=== PATIENT | male | born 1970 | race Caucasian/White ===

== ENCOUNTER 2023-11-04 20:54 | Emergency (ER) | payer BC ==
[2023-11-04 21:31] VITALS: RESP 16
[2023-11-04] MEDS ORDERED: Zofran 4 MG/2 ML VIAL ONE (21:40)
[2023-11-04] MEDS ORDERED: BABY ASPIRIN 81 MG CHEW ONE (21:41)
[2023-11-04] MEDS ORDERED: MORPHINE SULFATE 2 MG INJ ONE (21:41)
[2023-11-04] MEDS: MORPHINE SULFATE 2 MG INJ IV ONE (21:44)
[2023-11-04] MEDS: Zofran 4 MG/2 ML VIAL IV ONE (21:44)
[2023-11-04] MEDS: BABY ASPIRIN 81 MG CHEW PO ONE (21:44)
[2023-11-04 21:53] LABS: Absolute Neutrophil Ct (ANC) 5.76 x10^3/uL (1.78-5.38); BASOPHIL % 0.8 % (0.2-1.2); Basophil (Absolute #) 0.07 x10^3/uL (0.01-0.08); Eosinophil % 2.4 % (0.8-7.0); Eosinophil (Absolute #) 0.22 x10^3/uL (0.04-0.54); Hematocrit 38.7 % (40.1-51.0); Hemoglobin 13.4 g/dL (13.7-17.5); IMMATURE GRAN # 0.02 x10^3u/L (0.001-0.031); IMMATURE GRAN % 0.2 % (0.001-0.429); Lymphocyte (Absolute #) 2.64 x10^3/uL (1.32-3.57); Lymphocytes % 28.6 % (21.8-53.1); Mean Cell Volume 89.4 fL (79.0-92.2); Mean Corpuscular Hemoglobin 30.9 pg (25.7-32.2); Mean Corpuscular Hgb Concent. 34.6 g/dL (32.3-36.5); Mean Platelet Volume 8.9 fL (9.4-12.4); Monocyte (Absolute #) 0.53 x10^3/uL (0.30-0.82); Monocytes % 5.7 % (5.3-12.2); Neutrophil % 62.3 % (34.0-67.9); Platelet Count 248 x10^3/uL (163-337); Red Blood Count 4.33 x10^6/uL (4.63-6.08); Red Cell Distribution Width 12.9 % (11.6-14.4); White Blood Count 9.2 x10^3/uL (4.23-9.07)
[2023-11-04 22:27] LABS: ALBUMIN 3.9 g/dL (3.5-5.0); BILIRUBIN,TOTAL 0.5 mg/dL (0.2-1.3); Creatinine 1 0.83 mg/dL (0.66-1.25); EST GLOMERULAR FILTRATION RATE 105.3 ML/MIN; Potassium 3.6 mmol/L (3.5-5.1); Total Protein 6.5 g/dL (6.3-8.2)
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
[2023-11-05 01:41] VITALS: BP 116/78; PULSE 54; O2SAT 98
--- NOTE | 2023-11-05 09:05 | XRAY ---
Indication: Chest pain. Comparison: None Portable apical lordotic chest hyperinflated and clear with a few incidental tiny calcified granulomas. Heart not enlarged. Bony thorax intact.
== END 2023-11-05 01:56 | disposition home or self-care (01) ==
LOC: ED 20:54
DX: R07.9 Chest pain, unspecified (principal); I10 Essential (primary) hypertension; E78.5 Hyperlipidemia, unspecified; Z79.02 Long term (current) use of antithrombotics/antiplatelets; Z79.899 Other long term (current) drug therapy; Z72.0 Tobacco use
CPT/HCPCS: 36000; 36415; 71045; 80053; 83880; 84484; 85025; 85379; 93005; 96374; 96375; 99284; J2270; J2405; A9270-GY

== ENCOUNTER 2023-11-06 00:54 | Emergency (ER) | payer BC ==
[2023-11-06 01:15] VITALS: RESP 18; TEMP 98.7
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
[2023-11-06 01:55] VITALS: BP 134/74; PULSE 78; O2SAT 98
--- NOTE | 2023-11-06 08:55 | XRAY ---
Indication: Pain following injury. Comparison: None 3 nonweightbearing views left foot demonstrates mild 1st IP joint degenerative changes. No other bony, articular, or soft tissue abnormalities.
== END 2023-11-06 01:55 | disposition home or self-care (01) ==
LOC: ED 00:54
DX: S90.32XA Contusion of left foot, initial encounter (principal); W20.8XXA Other cause of strike by thrown, projected or falling object, initial encounter; E78.5 Hyperlipidemia, unspecified; I10 Essential (primary) hypertension; E11.9 Type 2 diabetes mellitus without complications; Z79.02 Long term (current) use of antithrombotics/antiplatelets; Z79.84 Long term (current) use of oral hypoglycemic drugs; Z79.899 Other long term (current) drug therapy; Z72.0 Tobacco use
CPT/HCPCS: 73630; 99282

== ENCOUNTER 2023-12-03 09:22 | Observation (INO) | payer BC, OTHER ==
--- NOTE | 2023-12-03 09:46 | ERPHSYRPT ---
- History of Present Illness Time Seen by Provider: 12/03/23 09:41 Historian: patient Exam Limitations: no limitations Physician History: 53-year-old male presents to our ED for evaluation of chest pain. Patient has a history of diabetes hypertension former smoker. Patient had a heart attack approximately 2 months ago per patient. He had 2 cardiac stents placed. Mesha leyva is from [place] and recently moved here to [place]. Patient has been experiencing some intermittent chest pain since his arrival to [place]. Patient's primary care doctor ordered a stress test. Patient was undergoing a stress test when he developed chest pain. Per report patient became unr esponsive briefly. Patient was brought to our ED for further evaluation. Patient has some substernal chest discomfort. No diaphoresis. No nausea no vomiting. Shortness of breath with activity. No active shortness of breath at rest. Patient at this point is conversant well-appearing and in no acute distress. He voices no other complaints or concerns at this time. Portions of this note were created with voice recognition technology. There may be grammatical, spelling, punctuation or sound alike errors Timing/Duration: today Activities at Onset: activity Quality: aching Location: substernal Chest Pain Radiation: no radiation Severity of Pain-Max: moderate Severity of Pain-Current: moderate Modifying Factors: Improves With: nothing Associated Symptoms: shortness of breath Prior Chest Pain/Cardiac Workup: cardiac cath, heart attack Nitro Today/Relief: no nitro taken today Aspirin Treatment Today: no aspirin today Allergies/Adverse Reactions: No Known Drug Allergies Allergy (Verified 12/03/23 09:30) Home Medications: Aspirin EC 81 mg [Ecotrin 81 mg] 81 mg PO DAILY 11/04/23 [History] Atorvastatin Calcium 40 mg PO DAILY 11/04/23 [History] Lisinopril 20 mg [Zestril 20 MG] 20 mg PO DAILY 11/04/23 [History] Metoprolol Tartrate 25 mg [Lopressor 25MG Tab] 25 mg PO BID 11/04/23 [History] Prasugrel HCL 10 MG [Prasugrel] 10 mg PO DAILY 11/04/23 [History] Empagliflozin [Jardiance] 25 mg PO DAILY 11/06/23 [History] Hx Tetanus, Diphtheria Vaccination/Date Given: Yes Hx Influenza Vaccination/Date Given: No Hx Pneumococcal Vaccination/Date Given: No Travel Risk - Emerging Infectious Disease Are you exhibiting symptoms associated with any current EIDs: No - Review of Systems Constitutional: No Symptoms, No Fever, No Chills Eyes: No Symptoms Ears, Nose, & Throat: No Symptoms Respiratory: No Symptoms, No Cough, No Dyspnea Cardiac: No Symptoms, No Chest Pain, No Edema, No Syncope Abdominal/Gastrointestinal: No Symptoms, No Abdominal Pain, No Nausea, No Vomiting, No Diarrhea Genitourinary Symptoms: No Symptoms, No Dysuria Musculoskeletal: No Symptoms, No Back Pain, No Neck Pain Skin: No Symptoms, No Rash Neurological: No Symptoms, No Dizziness, No Focal Weakness, No Sensory Changes Psychological: No Symptoms Endocrine: No Symptoms Hematologic/Lymphatic: No Symptoms Immunological/Allergic: No Symptoms All Other Systems: Reviewed and Negative - Past Medical History Pertinent Past Medical History: Yes Neurological History: Stroke ENT History: No Pertinent History Cardiac History: High Cholesterol, Hypertension, Myocardial Infarction ([place]) Respiratory History: No Pertinent History Endocrine Medical History: Diabetes Type II Musculoskeletal History: No Pertinent History GI Medical History: No Pertinent History History: No Pertinent History Psycho-Social History: No Pertinent History Male Reproductive Disorders: No Pertinent History Other Medical History: rib fractures x3. 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 to remove" - Social History Smoking Status: Current some day smoker Exposure to second hand smoke: No Drug Use: none - Social Determinants of Health Will the patient participate in the screening: Declined to provide Do you worry about a steady place to live?: No In the past 12 months,have you had to go without utilities?: No Transportation Issues: No Has anyone in your support network made you feel unsafe?: No Have you or anyone in your house had to go without enough: No - Nursing Vital Signs Nursing Vital Signs: Initial Vital Signs Temperature 98.0 F 12/03/23 09:30 Pulse Rate 62 12/03/23 09:30 Respiratory Rate 20 12/03/23 09:30 Blood Pressure 168/96 12/03/23 09:30 O2 Sat by Pulse Oximetry 98 12/03/23 09:30 Pain Scale Pain Intensity 4 - Physical Exam General Appearance: no apparent distress, alert Eye Exam: PERRL/EOMI, eyes nml inspection Ears, Nose, Throat Exam: normal ENT inspection, moist mucous membranes Neck Exam: normal inspection, non-tender, supple, full range of motion Respiratory Exam: normal breath sounds, lungs clear, No respiratory distress Cardiovascular Exam: regular rate/rhythm, normal heart sounds Gastrointestinal/Abdomen Exam: soft, No tenderness, No mass Back Exam: normal inspection, No CVA tenderness, No vertebral tenderness Extremity Exam: normal inspection, normal range of motion Neurologic Exam: alert, oriented x 3, cooperative, normal mood/affect, sensation nml, No motor deficits Skin Exam: normal color, warm, dry SpO2 Interpretation: normal SpO2: 98 O2 Delivery: Room Air - Course Nursing assessment & vital signs reviewed: Yes EKG Interpreted by Me: RATE (68), Sinus Rhythm, Left [place] Deviation, NORMAL INTERVALS, NORMAL QRS - Radiology Exams Chest X-ray Interpretation: Teleradiologist Report (No acute findings) Ordered Tests: Active Orders 24 hr Category Date Time Status Anthropology Faculty Member STAT Care 12/03/23 09:39 Active EKG-ER Only STAT Care 12/03/23 09:38 Active IV Insertion STAT Care 12/03/23 09:38 Active Pulse Oximetry (ED) STAT Care 12/03/23 09:38 Active CHEST 1 VIEW (PORTABLE) Stat Exams 12/03/23 09:41 Completed CBC W DIFF Stat Lab 12/03/23 09:35 Completed CMP Stat Lab 12/03/23 09:35 Completed ETHYL ALCOHOL Stat Lab 12/03/23 09:35 Completed NT PRO BNPII Stat Lab 12/03/23 09:35 Completed POCT GLUCOSE Stat Lab 12/03/23 09:32 Completed TROPONIN Q4H Lab 12/03/23 09:35 Completed TROPONIN Q4H Lab 12/03/23 12:10 Completed TROPONIN Q4H Lab 12/03/23 17:45 Ordered UA W/RFX UR CULTURE Stat Lab 12/03/23 12:05 Completed Urine Triage Profile Stat Lab 12/03/23 12:05 Completed Cardiolite Stress Test-RT ONCE RT 12/03/23 09:42 Completed Transfer Order Routine Transfer 12/03/23 Ordered Medication Summary Discontinued Medications Generic Name Dose Route Start Last Admin Trade Name Lance PRN Reason Stop Dose Admin Aspirin 324 mg 12/03/23 09:47 12/03/23 09:58 Aspirin 81 Mg Tab.Chew PO 12/03/23 09:48 324 mg STAT ONE Administration Aspirin Confirm 12/03/23 09:57 Aspirin 81 Mg Tab.Chew Administered 12/03/23 09:58 Dose 324 mg .ROUTE .STK-MED ONE Nitroglycerin 1 gm 12/03/23 09:48 12/03/23 09:58 Nitroglycerin 1 Gm Packet TOP 12/03/23 09:49 1 gm STAT ONE Administration Nitroglycerin Confirm 12/03/23 09:57 Nitroglycerin 1 Gm Packet Administered 12/03/23 09:58 Dose 1 gm .ROUTE .STK-MED ONE Lab/Rad Data: Laboratory Result Diagrams 12/03/23 09:35 12/03/23 09:35 Laboratory Results 12/03/23 12/03/23 12/03/23 Range/Units 12:10 12:05 12:05 WBC (4.23-9.07) x10^3/uL RBC (4.63-6.08) x10^6/uL Hgb (13.7-17.5) g/dL Hct (40.1-51.0) % MCV (79.0-92.2) fL MCH (25.7-32.2) pg MCHC (32.3-36.5) g/dL RDW (11.6-14.4) % Plt Count (163-337) x10^3/uL MPV (9.4-12.4) fL Gran % (34.0-67.9) % Immature Gran % (Auto) (0.001-0.429) % Nucleat RBC Rel Count (0.00-0.2) % Eos # (Auto) (0.04-0.54) x10^3/uL Immature Gran # (Auto) (0.001-0.031) x10^3u/L Absolute Lymphs (auto) (1.32-3.57) x10^3/uL Absolute Monos (auto) (0.30-0.82) x10^3/uL Absolute Nucleated RBC (0.00-0.012) x10^3u/L Lymphocytes % (21.8-53.1) % Monocytes % (5.3-12.2) % Eosinophils % (0.8-7.0) % Basophils % (0.2-1.2) % Absolute Granulocytes (1.78-5.38) x10^3/uL Basophils # (0.01-0.08) x10^3/uL Sodium (135-145) mmol/L Potassium (3.5-5.1) mmol/L Chloride (98-107) mmol/L Carbon Dioxide (22-30) mmol/L Anion Gap (5-15) MEQ/L BUN (9-20) mg/dL Creatinine (0.66-1.25) mg/dL Estimated GFR ML/MIN Glucose (74-106) mg/dL POC Glucometer (74 to 106) mg/dL Calcium (8.4-10.2) mg/dL Total Bilirubin (0.2-1.3) mg/dL AST (17-59) U/L ALT (0-50) U/L Alkaline Phosphatase (38-126) U/L Troponin I < 0.012 (0.000-0.033) ng/mL NT-Pro-B Natriuret Pep (<300) pg/mL Serum Total Protein (6.3-8.2) g/dL Albumin (3.5-5.0) g/dL Urine Color Yellow (Yellow) Urine Appearance Clear (Clear) Urine pH 5.5 (4.6-8.0) Ur Specific [place] 1.025 (1.005-1.030) Urine Protein Negative (Negative) Urine Glucose (UA) >=1000 A (Negative) mg/dL Urine Ketones Negative (Negative) Urine Blood Negative (Negative) Urine Nitrite Negative (Negative) Urine Bilirubin Negative (Negative) Urine Urobilinogen 0.2 (0.2) mg/dL Ur Leukocyte Esterase Negative (Negative) U Hyaline Cast (Auto) NONE SEEN (0-2) /LPF Urine Microscopic RBC 0-2 (0-5) /HPF Urine Microscopic WBC 0-2 (0-5) /HPF Ur Epithelial Cells None Seen (None Seen) /HPF Urine Bacteria None Seen (None Seen) /HPF Urine Culture Reflexed NO (NO) Urine Opiates Level NEGATIVE (NEGATIVE) Ur Methadone NEGATIVE (NEGATIVE) Urine Barbiturates NEGATIVE (NEGATIVE) Ur Phencyclidine (PCP) NEGATIVE (NEGATIVE) Urine Amphetamine NEGATIVE (NEGATIVE) U Benzodiazepine Level NEGATIVE (NEGATIVE) Urine Cocaine NEGATIVE (NEGATIVE) Urine Marijuana (THC) POSITIVE A (NEGATIVE) Ethyl Alcohol (0-10) mg/dL 12/03/23 12/03/23 12/03/23 Range/Units 09:35 09:35 09:35 WBC 9.6 H (4.23-9.07) x10^3/uL RBC 5.01 (4.63-6.08) x10^6/uL Hgb 15.4 (13.7-17.5) g/dL Hct 44.5 (40.1-51.0) % MCV 88.8 (79.0-92.2) fL MCH 30.7 (25.7-32.2) pg MCHC 34.6 (32.3-36.5) g/dL RDW 12.6 (11.6-14.4) % Plt Count 223 (163-337) x10^3/uL MPV 8.7 L (9.4-12.4) fL Gran % 72.3 H (34.0-67.9) % Immature Gran % (Auto) 0.2 (0.001-0.429) % Nucleat RBC Rel Count 0.0 (0.00-0.2) % Eos # (Auto) 0.17 (0.04-0.54) x10^3/uL Immature Gran # (Auto) 0.02 (0.001-0.031) x10^3u/L Absolute Lymphs (auto) 1.93 (1.32-3.57) x10^3/uL Absolute Monos (auto) 0.47 (0.30-0.82) x10^3/uL Absolute Nucleated RBC 0.00 (0.00-0.012) x10^3u/L Lymphocytes % 20.1 L (21.8-53.1) % Monocytes % 4.9 L (5.3-12.2) % Eosinophils % 1.8 (0.8-7.0) % Basophils % 0.7 (0.2-1.2) % Absolute Granulocytes 6.92 H (1.78-5.38) x10^3/uL Basophils # 0.07 (0.01-0.08) x10^3/uL Sodium 137 (135-145) mmol/L Potassium 3.9 (3.5-5.1) mmol/L Chloride 104 (98-107) mmol/L Carbon Dioxide 23 (22-30) mmol/L Anion Gap 13.5 (5-15) MEQ/L BUN 18 (9-20) mg/dL Creatinine 0.75 (0.66-1.25) mg/dL Estimated GFR 108.6 ML/MIN Glucose 145 H (74-106) mg/dL POC Glucometer (74 to 106) mg/dL Calcium 9.3 (8.4-10.2) mg/dL Total Bilirubin 0.60 (0.2-1.3) mg/dL AST 36 (17-59) U/L ALT 54 H (0-50) U/L Alkaline Phosphatase 65 (38-126) U/L Troponin I < 0.012 (0.000-0.033) ng/mL NT-Pro-B Natriuret Pep 197 (<300) pg/mL Serum Total Protein 7.1 (6.3-8.2) g/dL Albumin 4.3 (3.5-5.0) g/dL Urine Color (Yellow) Urine Appearance (Clear) Urine pH (4.6-8.0) Ur Specific [place] (1.005-1.030) Urine Protein (Negative) Urine Glucose (UA) (Negative) mg/dL Urine Ketones (Negative) Urine Blood (Negative) Urine Nitrite (Negative) Urine Bilirubin (Negative) Urine Urobilinogen (0.2) mg/dL Ur Leukocyte Esterase (Negative) U Hyaline Cast (Auto) (0-2) /LPF Urine Microscopic RBC (0-5) /HPF Urine Microscopic WBC (0-5) /HPF Ur Epithelial Cells (None Seen) /HPF Urine Bacteria (None Seen) /HPF Urine Culture Reflexed (NO) Urine Opiates Level (NEGATIVE) Ur Methadone (NEGATIVE) Urine Barbiturates (NEGATIVE) Ur Phencyclidine (PCP) (NEGATIVE) Urine Amphetamine (NEGATIVE) U Benzodiazepine Level (NEGATIVE) Urine Cocaine (NEGATIVE) Urine Marijuana (THC) (NEGATIVE) Ethyl Alcohol < 10 (0-10) mg/dL 12/03/23 Range/Units 09:32 WBC (4.23-9.07) x10^3/uL RBC (4.63-6.08) x10^6/uL Hgb (13.7-17.5) g/dL Hct (40.1-51.0) % MCV (79.0-92.2) fL MCH (25.7-32.2) pg MCHC (32.3-36.5) g/dL RDW (11.6-14.4) % Plt Count (163-337) x10^3/uL MPV (9.4-12.4) fL Gran % (34.0-67.9) % Immature Gran % (Auto) (0.001-0.429) % Nucleat RBC Rel Count (0.00-0.2) % Eos # (Auto) (0.04-0.54) x10^3/uL Immature Gran # (Auto) (0.001-0.031) x10^3u/L Absolute Lymphs (auto) (1.32-3.57) x10^3/uL Absolute Monos (auto) (0.30-0.82) x10^3/uL Absolute Nucleated RBC (0.00-0.012) x10^3u/L Lymphocytes % (21.8-53.1) % Monocytes % (5.3-12.2) % Eosinophils % (0.8-7.0) % Basophils % (0.2-1.2) % Absolute Granulocytes (1.78-5.38) x10^3/uL Basophils # (0.01-0.08) x10^3/uL Sodium (135-145) mmol/L Potassium (3.5-5.1) mmol/L Chloride (98-107) mmol/L Carbon Dioxide (22-30) mmol/L Anion Gap (5-15) MEQ/L BUN (9-20) mg/dL Creatinine (0.66-1.25) mg/dL Estimated GFR ML/MIN Glucose (74-106) mg/dL POC Glucometer 128 H (74 to 106) mg/dL Calcium (8.4-10.2) mg/dL Total Bilirubin (0.2-1.3) mg/dL AST (17-59) U/L ALT (0-50) U/L Alkaline Phosphatase (38-126) U/L Troponin I (0.000-0.033) ng/mL NT-Pro-B Natriuret Pep (<300) pg/mL Serum Total Protein (6.3-8.2) g/dL Albumin (3.5-5.0) g/dL Urine Color (Yellow) Urine Appearance (Clear) Urine pH (4.6-8.0) Ur Specific [place] (1.005-1.030) Urine Protein (Negative) Urine Glucose (UA) (Negative) mg/dL Urine Ketones (Negative) Urine Blood (Negative) Urine Nitrite (Negative) Urine Bilirubin (Negative) Urine Urobilinogen (0.2) mg/dL Ur Leukocyte Esterase (Negative) U Hyaline Cast (Auto) (0-2) /LPF Urine Microscopic RBC (0-5) /HPF Urine Microscopic WBC (0-5) /HPF Ur Epithelial Cells (None Seen) /HPF Urine Bacteria (None Seen) /HPF Urine Culture Reflexed (NO) Urine Opiates Level (NEGATIVE) Ur Methadone (NEGATIVE) Urine Barbiturates (NEGATIVE) Ur Phencyclidine (PCP) (NEGATIVE) Urine Amphetamine (NEGATIVE) U Benzodiazepine Level (NEGATIVE) Urine Cocaine (NEGATIVE) Urine Marijuana (THC) (NEGATIVE) Ethyl Alcohol (0-10) mg/dL - Progress Progress: improved Air Movement: good Progress Note: Patient reassessed. No active chest pain. Aspirin and nitroglycerin paste applied. 2 troponin negative. CBC CMP essentially nonremarkable. Chest x-ray shows no acute pathology. In light of patient's complaints and history patient will be admitted for cardiac rule out. Patient accepted by hospitalist Dr. Godfrey at 12:58 PM. Plan of care discussed with patient. Patient agrees to admission [facility] acute hospital for further evaluation and treatment. Portions of this note were created with voice recognition technology. There may be grammatical, spelling, punctuation or sound alike errors Complexity of problem addressed is moderate acute complicated. No critical care time. Complex of data reviewed and analyzed is extensive. Test ordered test reviewed results analyzed and correlated clinically with history and physical exam. Risk of complication and or risk of morbidity/mortality patient management is high. Patient requires hospitalization for further evaluation and treatment. Vital stable time spent to admit patient approximately 20 minutes. Plan of care established for shared decision making. No social determinants of health present impede follow-up. Portions of this note were created with voice recognition technology. There may be grammatical, spelling, punctuation or sound alike errors 12/03/23 13:00 Blood Culture(s) Obtained: No Antibiotics given: No Counseled pt/family regarding: lab results, diagnosis, rad results - Departure Departure Disposition: Observation Clinical Impression: Chest pain, ACS (acute coronary syndrome) Condition: Stable Critical Care Time: No Referrals: PAMELA ROMO MD [Primary Care Provider] - Follow up/PCP as directed
[2023-12-03 09:54] LABS: Absolute Neutrophil Ct (ANC) 6.92 x10^3/uL (1.78-5.38); BASOPHIL % 0.7 % (0.2-1.2); Basophil (Absolute #) 0.07 x10^3/uL (0.01-0.08); Eosinophil % 1.8 % (0.8-7.0); Eosinophil (Absolute #) 0.17 x10^3/uL (0.04-0.54); Hematocrit 44.5 % (40.1-51.0); Hemoglobin 15.4 g/dL (13.7-17.5); IMMATURE GRAN # 0.02 x10^3u/L (0.001-0.031); IMMATURE GRAN % 0.2 % (0.001-0.429); Lymphocyte (Absolute #) 1.93 x10^3/uL (1.32-3.57); Lymphocytes % 20.1 % (21.8-53.1); Mean Cell Volume 88.8 fL (79.0-92.2); Mean Corpuscular Hemoglobin 30.7 pg (25.7-32.2); Mean Corpuscular Hgb Concent. 34.6 g/dL (32.3-36.5); Mean Platelet Volume 8.7 fL (9.4-12.4); Monocyte (Absolute #) 0.47 x10^3/uL (0.30-0.82); Monocytes % 4.9 % (5.3-12.2); Neutrophil % 72.3 % (34.0-67.9); Platelet Count 223 x10^3/uL (163-337); Red Blood Count 5.01 x10^6/uL (4.63-6.08); Red Cell Distribution Width 12.6 % (11.6-14.4); White Blood Count 9.6 x10^3/uL (4.23-9.07)
[2023-12-03] MEDS ORDERED: BABY ASPIRIN 81 MG CHEW ONE (09:57)
[2023-12-03] MEDS ORDERED: NITRO-BID 2% UD PACKETS ONE (09:57)
[2023-12-03] MEDS: BABY ASPIRIN 81 MG CHEW PO ONE (09:58)
[2023-12-03] MEDS: NITRO-BID 2% UD PACKETS TOP ONE (09:58)
[2023-12-03 10:17] LABS: ALBUMIN 4.3 g/dL (3.5-5.0); ALKALINE PHOSPHATASE 65 U/L (38-126); ANION GAP 13.5 MEQ/L (5-15); BLOOD UREA NITROGEN 18 mg/dL (9-20); CHLORIDE 104 mmol/L (98-107); Calcium 9.3 mg/dL (8.4-10.2); Carbon Dioxide 23 mmol/L (22-30); Creatinine 1 0.75 mg/dL (0.66-1.25); EST GLOMERULAR FILTRATION RATE 108.6 ML/MIN; ETHYL ALCOHOL < 10 mg/dL (0-10); Glucose 145 mg/dL (74-106); NT PRO BNPII 197 pg/mL (<300); Potassium 3.9 mmol/L (3.5-5.1); SGOT/AST 36 U/L (17-59); SGPT/ALT 54 U/L (0-50); SODIUM 137 mmol/L (135-145); Total Protein 7.1 g/dL (6.3-8.2)
--- NOTE | 2023-12-03 10:17 | XRAY ---
Indication: Chest pain. Comparison: November 04, 2023 Portable chest remains hyperinflated and clear. Heart not enlarged. Bony thorax intact. No new/acute findings.
[2023-12-03 12:15] LABS: Appearance Clear (Clear); Bacteria None Seen /HPF (None Seen); Bilirubin Negative (Negative); Blood Negative (Negative); Epithelial Cells None Seen /HPF (None Seen); Glucose, Urine >=1000 mg/dL (Negative); Hyaline Casts NONE SEEN /LPF (0-2); Ketones Negative (Negative); Leukocyte Esterase Negative (Negative); Nitrite Negative (Negative); Ph 5.5 (4.6-8.0); Protein,Urine Dip Negative (Negative); RBC 0-2 /HPF (0-5); Specific Gravity 1.025 (1.005-1.030); Urobilinogen 0.2 mg/dL (0.2); WBC 0-2 /HPF (0-5)
[2023-12-03 12:18] LABS: ADD URINE CULTURE? NO (NO)
[2023-12-03 12:33] LABS: Amphetamine,Urine NEGATIVE (NEGATIVE); Barbiturate,Urine NEGATIVE (NEGATIVE); Benzodiazepine,Urine NEGATIVE (NEGATIVE); Cocaine,Urine NEGATIVE (NEGATIVE); Methadone,Urine NEGATIVE (NEGATIVE); Opiate,Urine NEGATIVE (NEGATIVE); PCP,Urine NEGATIVE (NEGATIVE); THC,Urine POSITIVE (NEGATIVE)
--- NOTE | 2023-12-03 13:18 | PCM.HP ---
History of Present Illness - Chief Complaint Chief Complaint: CP Date: 12/03/23 History of Present Illness: is a 53 year old male with PMHX of stroke, hyperlipidemia, HTN, [place], type II DM, daily smoker- stopped 2 days ago, and occasional marijuana use. He presented to our ED today for evaluation of chest pain. Patient had a heart attack approximately 2 months he reports. He has had 2 cardiac stents placed. Patient is from [place] and recently moved here to [place]. 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 Patient has been experiencing some intermittent chest pain since his arrival to [place]. Patient's primary care doctor ordered a stress test. Patient was undergoing the stress test when he developed chest pain. Per report patient became unresponsive briefly. Patient was brought to our ED for further evaluation. Patient has some substernal chest discomfort that is sharp and w/o radiation. Trop x2 negative, will continue to trend. No diaphoresis, nausea or vomiting. + Shortness of breath with activity. No active shortness of breath at rest. Patient at this point is conversing, well-appearing, and in no acute distress. He voices no other complaints or concerns at this time. He is tearful. - Review of Systems Constitutional: No Fever, No Chills Eyes: No Symptoms Ears, Nose, & Throat: No Symptoms Respiratory: No Cough, No Short Of Breath Cardiac: Chest Pain, No Edema, No Syncope Abdominal/Gastrointestinal: No Abdominal Pain, No Nausea, No Vomiting, No Diarrhea Genitourinary Symptoms: No Dysuria Musculoskeletal: No Back Pain, No Neck Pain Skin: No Rash Neurological: No Dizziness, No Focal Weakness, No Sensory Changes Psychological: No Symptoms Endocrine: No Symptoms Hematologic/Lymphatic: No Symptoms Immunological/Allergic: No Symptoms Medications & Allergies Home Medications: Home Medication List Aspirin EC 81 mg [Ecotrin 81 mg] 81 mg PO DAILY 11/04/23 [History Confirmed 12/03/23] Atorvastatin Calcium 40 mg PO DAILY 11/04/23 [History Confirmed 12/03/23] Lisinopril 20 mg [Zestril 20 MG] 20 mg PO DAILY 11/04/23 [History Confirmed 12/03/23] Metoprolol Tartrate 25 mg [Lopressor 25MG Tab] 25 mg PO BID 11/04/23 [History Confirmed 12/03/23] Prasugrel HCL 10 MG [Prasugrel] 10 mg PO DAILY 11/04/23 [History Confirmed 12/03/23] Empagliflozin [Jardiance] 25 mg PO DAILY 11/06/23 [History Confirmed 12/03/23] Allergies/Adverse Reactions: Allergies Allergy/AdvReac Type Severity Reaction Status Date / Time No Known Drug Allergies Allergy Verified 12/03/23 09:30 - Past Medical History Past Medical History: Yes Neurological History: Stroke ENT History: No Pertinent History Cardiac History: High Cholesterol, Hypertension, Myocardial Infarction ([place]) Respiratory History: No Pertinent History Endocrine Medical History: Diabetes Type II Musculoskelatal History: No Pertinent History GI Medical History: No Pertinent History History: No Pertinent History Pyscho-Social History: No Pertinent History Male Reproductive Disorders: No Pertinent History Comment: rib fractures x3. 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 they had to remove" - Social History Smoking Status: Current some day smoker Exposure to second hand smoke: No Alcohol: None Drug Use: none - Social Determinants of Health Will the patient participate in the screening: Declined to provide Do you worry about a steady place to live?: No Do you have any problems with any of the following?: No known problems In the past 12 months,have you had to go without utilities?: No Have you or anyone in your house had to go without enough: No Transportation Issues: No Has anyone in your support network made you feel unsafe?: No - Physical Exam Vital Signs: Vital Signs - 24 hr Temp Pulse Resp BP BP Pulse Ox 12/03/23 13:02 98 12/03/23 12:45 67 17 191/84 95 12/03/23 12:30 66 18 164/99 95 12/03/23 12:15 63 18 161/91 12/03/23 12:00 60 17 146/89 97 12/03/23 11:45 57 L 17 161/97 96 12/03/23 11:30 59 L 16 158/97 95 12/03/23 11:15 66 19 165/95 96 12/03/23 11:00 59 L 19 170/96 96 12/03/23 10:45 71 21 154/107 96 12/03/23 10:30 67 14 159/96 98 12/03/23 10:15 67 19 146/91 97 12/03/23 10:00 71 18 159/102 96 12/03/23 09:58 98 12/03/23 09:55 78 22 175/95 95 12/03/23 09:30 98.0 F 66 15 168/96 180/104 96 General Appearance: no apparent distress, alert Neurologic Exam: alert, oriented x 3, cooperative, normal mood/affect, nml cerebellar function, nml station & gait, sensation nml, No motor deficits Eye Exam: PERRL/EOMI, eyes nml inspection Ears, Nose, Throat Exam: normal ENT inspection, TMs normal, pharynx normal, moist mucous membranes Neck Exam: normal inspection, non-tender, supple, full range of motion Respiratory Exam: normal breath sounds, lungs clear, No respiratory distress Cardiovascular Exam: regular rate/rhythm, normal heart sounds, normal peripheral pulses Gastrointestinal/Abdomen Exam: soft, normal bowel sounds, No tenderness, No mass Back Exam: normal inspection, normal range of motion, No CVA tenderness, No vertebral tenderness Extremity Exam: normal inspection, normal range of motion, pelvis stable Skin Exam: normal color, warm, dry, No rash Lymphatic Exam: No adenopathy Results - Labs Lab/Micro Results: Lab Results-Last 24 Hours 12/03/23 12/03/23 12/03/23 Range/Units 09:32 09:35 09:35 WBC 9.6 H (4.23-9.07) x10^3/uL RBC 5.01 (4.63-6.08) x10^6/uL Hgb 15.4 (13.7-17.5) g/dL Hct 44.5 (40.1-51.0) % MCV 88.8 (79.0-92.2) fL MCH 30.7 (25.7-32.2) pg MCHC 34.6 (32.3-36.5) g/dL RDW 12.6 (11.6-14.4) % Plt Count 223 (163-337) x10^3/uL MPV 8.7 L (9.4-12.4) fL Gran % 72.3 H (34.0-67.9) % Immature Gran % (Auto) 0.2 (0.001-0.429) % Nucleat RBC Rel Count 0.0 (0.00-0.2) % Eos # (Auto) 0.17 (0.04-0.54) x10^3/uL Immature Gran # (Auto) 0.02 (0.001-0.031) x10^3u/L Absolute Lymphs (auto) 1.93 (1.32-3.57) x10^3/uL Absolute Monos (auto) 0.47 (0.30-0.82) x10^3/uL Absolute Nucleated RBC 0.00 (0.00-0.012) x10^3u/L Lymphocytes % 20.1 L (21.8-53.1) % Monocytes % 4.9 L (5.3-12.2) % Eosinophils % 1.8 (0.8-7.0) % Basophils % 0.7 (0.2-1.2) % Absolute Granulocytes 6.92 H (1.78-5.38) x10^3/uL Basophils # 0.07 (0.01-0.08) x10^3/uL Sodium 137 (135-145) mmol/L Potassium 3.9 (3.5-5.1) mmol/L Chloride 104 (98-107) mmol/L Carbon Dioxide 23 (22-30) mmol/L Anion Gap 13.5 (5-15) MEQ/L BUN 18 (9-20) mg/dL Creatinine 0.75 (0.66-1.25) mg/dL Estimated GFR 108.6 ML/MIN Glucose 145 H (74-106) mg/dL POC Glucometer 128 H (74 to 106) mg/dL Calcium 9.3 (8.4-10.2) mg/dL Total Bilirubin 0.60 (0.2-1.3) mg/dL AST 36 (17-59) U/L ALT 54 H (0-50) U/L Alkaline Phosphatase 65 (38-126) U/L Troponin I (0.000-0.033) ng/mL NT-Pro-B Natriuret Pep 197 (<300) pg/mL Serum Total Protein 7.1 (6.3-8.2) g/dL Albumin 4.3 (3.5-5.0) g/dL Urine Color (Yellow) Urine Appearance (Clear) Urine pH (4.6-8.0) Ur Specific Newman (1.005-1.030) Urine Protein (Negative) Urine Glucose (UA) (Negative) mg/dL Urine Ketones (Negative) Urine Blood (Negative) Urine Nitrite (Negative) Urine Bilirubin (Negative) Urine Urobilinogen (0.2) mg/dL Ur Leukocyte Esterase (Negative) U Hyaline Cast (Auto) (0-2) /LPF Urine Microscopic RBC (0-5) /HPF Urine Microscopic WBC (0-5) /HPF Ur Epithelial Cells (None Seen) /HPF Urine Bacteria (None Seen) /HPF Urine Culture Reflexed (NO) Urine Opiates Level (NEGATIVE) Ur Methadone (NEGATIVE) Urine Barbiturates (NEGATIVE) Ur Phencyclidine (PCP) (NEGATIVE) Urine Amphetamine (NEGATIVE) U Benzodiazepine Level (NEGATIVE) Urine Cocaine (NEGATIVE) Urine Marijuana (THC) (NEGATIVE) Ethyl Alcohol < 10 (0-10) mg/dL 12/03/23 12/03/23 12/03/23 Range/Units 09:35 12:05 12:05 WBC (4.23-9.07) x10^3/uL RBC (4.63-6.08) x10^6/uL Hgb (13.7-17.5) g/dL Hct (40.1-51.0) % MCV (79.0-92.2) fL MCH (25.7-32.2) pg MCHC (32.3-36.5) g/dL RDW (11.6-14.4) % Plt Count (163-337) x10^3/uL MPV (9.4-12.4) fL Gran % (34.0-67.9) % Immature Gran % (Auto) (0.001-0.429) % Nucleat RBC Rel Count (0.00-0.2) % Eos # (Auto) (0.04-0.54) x10^3/uL Immature Gran # (Auto) (0.001-0.031) x10^3u/L Absolute Lymphs (auto) (1.32-3.57) x10^3/uL Absolute Monos (auto) (0.30-0.82) x10^3/uL Absolute Nucleated RBC (0.00-0.012) x10^3u/L Lymphocytes % (21.8-53.1) % Monocytes % (5.3-12.2) % Eosinophils % (0.8-7.0) % Basophils % (0.2-1.2) % Absolute Granulocytes (1.78-5.38) x10^3/uL Basophils # (0.01-0.08) x10^3/uL Sodium (135-145) mmol/L Potassium (3.5-5.1) mmol/L Chloride (98-107) mmol/L Carbon Dioxide (22-30) mmol/L Anion Gap (5-15) MEQ/L BUN (9-20) mg/dL Creatinine (0.66-1.25) mg/dL Estimated GFR ML/MIN Glucose (74-106) mg/dL POC Glucometer (74 to 106) mg/dL Calcium (8.4-10.2) mg/dL Total Bilirubin (0.2-1.3) mg/dL AST (17-59) U/L ALT (0-50) U/L Alkaline Phosphatase (38-126) U/L Troponin I < 0.012 (0.000-0.033) ng/mL NT-Pro-B Natriuret Pep (<300) pg/mL Serum Total Protein (6.3-8.2) g/dL Albumin (3.5-5.0) g/dL Urine Color Yellow (Yellow) Urine Appearance Clear (Clear) Urine pH 5.5 (4.6-8.0) Ur Specific Newman 1.025 (1.005-1.030) Urine Protein Negative (Negative) Urine Glucose (UA) >=1000 A (Negative) mg/dL Urine Ketones Negative (Negative) Urine Blood Negative (Negative) Urine Nitrite Negative (Negative) Urine Bilirubin Negative (Negative) Urine Urobilinogen 0.2 (0.2) mg/dL Ur Leukocyte Esterase Negative (Negative) U Hyaline Cast (Auto) NONE SEEN (0-2) /LPF Urine Microscopic RBC 0-2 (0-5) /HPF Urine Microscopic WBC 0-2 (0-5) /HPF Ur Epithelial Cells None Seen (None Seen) /HPF Urine Bacteria None Seen (None Seen) /HPF Urine Culture Reflexed NO (NO) Urine Opiates Level NEGATIVE (NEGATIVE) Ur Methadone NEGATIVE (NEGATIVE) Urine Barbiturates NEGATIVE (NEGATIVE) Ur Phencyclidine (PCP) NEGATIVE (NEGATIVE) Urine Amphetamine NEGATIVE (NEGATIVE) U Benzodiazepine Level NEGATIVE (NEGATIVE) Urine Cocaine NEGATIVE (NEGATIVE) Urine Marijuana (THC) POSITIVE A (NEGATIVE) Ethyl Alcohol (0-10) mg/dL 12/03/23 Range/Units 12:10 WBC (4.23-9.07) x10^3/uL RBC (4.63-6.08) x10^6/uL Hgb (13.7-17.5) g/dL Hct (40.1-51.0) % MCV (79.0-92.2) fL MCH (25.7-32.2) pg MCHC (32.3-36.5) g/dL RDW (11.6-14.4) % Plt Count (163-337) x10^3/uL MPV (9.4-12.4) fL Gran % (34.0-67.9) % Immature Gran % (Auto) (0.001-0.429) % Nucleat RBC Rel Count (0.00-0.2) % Eos # (Auto) (0.04-0.54) x10^3/uL Immature Gran # (Auto) (0.001-0.031) x10^3u/L Absolute Lymphs (auto) (1.32-3.57) x10^3/uL Absolute Monos (auto) (0.30-0.82) x10^3/uL Absolute Nucleated RBC (0.00-0.012) x10^3u/L Lymphocytes % (21.8-53.1) % Monocytes % (5.3-12.2) % Eosinophils % (0.8-7.0) % Basophils % (0.2-1.2) % Absolute Granulocytes (1.78-5.38) x10^3/uL Basophils # (0.01-0.08) x10^3/uL Sodium (135-145) mmol/L Potassium (3.5-5.1) mmol/L Chloride (98-107) mmol/L Carbon Dioxide (22-30) mmol/L Anion Gap (5-15) MEQ/L BUN (9-20) mg/dL Creatinine (0.66-1.25) mg/dL Estimated GFR ML/MIN Glucose (74-106) mg/dL POC Glucometer (74 to 106) mg/dL Calcium (8.4-10.2) mg/dL Total Bilirubin (0.2-1.3) mg/dL AST (17-59) U/L ALT (0-50) U/L Alkaline Phosphatase (38-126) U/L Troponin I < 0.012 (0.000-0.033) ng/mL NT-Pro-B Natriuret Pep (<300) pg/mL Serum Total Protein (6.3-8.2) g/dL Albumin (3.5-5.0) g/dL Urine Color (Yellow) Urine Appearance (Clear) Urine pH (4.6-8.0) Ur Specific Newman (1.005-1.030) Urine Protein (Negative) Urine Glucose (UA) (Negative) mg/dL Urine Ketones (Negative) Urine Blood (Negative) Urine Nitrite (Negative) Urine Bilirubin (Negative) Urine Urobilinogen (0.2) mg/dL Ur Leukocyte Esterase (Negative) U Hyaline Cast (Auto) (0-2) /LPF Urine Microscopic RBC (0-5) /HPF Urine Microscopic WBC (0-5) /HPF Ur Epithelial Cells (None Seen) /HPF Urine Bacteria (None Seen) /HPF Urine Culture Reflexed (NO) Urine Opiates Level (NEGATIVE) Ur Methadone (NEGATIVE) Urine Barbiturates (NEGATIVE) Ur Phencyclidine (PCP) (NEGATIVE) Urine Amphetamine (NEGATIVE) U Benzodiazepine Level (NEGATIVE) Urine Cocaine (NEGATIVE) Urine Marijuana (THC) (NEGATIVE) Ethyl Alcohol (0-10) mg/dL - Radiology Impressions Radiology Exams & Impressions: Radiology Procedures Category Date Time Status CHEST 1 VIEW (PORTABLE) Stat Exams 12/03/23 09:41 Completed Assessment/Plan (1) Chest pain Current Visit: Yes Status: Acute Assessment & Plan: - while doing stress test today - improved since admission - cardiology consult. - Trop x2 negative- trend - EKG reviewed - labs reviewed - Tele - will need cardiology f/u OP as he just moved here and has not established with one yet. Code(s): R07.9 - CHEST PAIN, UNSPECIFIED (2) Smoker Current Visit: Yes Status: Chronic Assessment & Plan: - Pt reports he stopped 2 days ago - pt refused nicotine patch Code(s): F17.200 - NICOTINE DEPENDENCE, UNSPECIFIED, UNCOMPLICATED (3) Tetrahydrocannabinol (THC) dependence Current Visit: Yes Status: Chronic Assessment & Plan: - advised cessation - pt states he only occasionally smokes Code(s): F12.20 - CANNABIS DEPENDENCE, UNCOMPLICATED (4) HTN (hypertension) Current Visit: Yes Status: Acute Assessment & Plan: - Pt has not taken BP meds today for stress test as requested - Bp elevated - restart meds now. - trend BP Code(s): I10 - ESSENTIAL (PRIMARY) HYPERTENSION (5) Hyperlipidemia Current Visit: Yes Status: Chronic Assessment & Plan: - Continue Zocor - Lipid panel from October VTE: Lovenox Next of KIN: Code status: full D/c plan: tomorrow Code(s): E78.5 - HYPERLIPIDEMIA, UNSPECIFIED
[2023-12-03] MEDS: Lopressor 25MG Tab PO SCH (16:43)
[2023-12-03] MEDS: ZOCOR 20MG PO SCH (16:43)
[2023-12-03] MEDS: JARDIANCE PO SCH (16:44)
[2023-12-03] MEDS: Prasugrel PO SCH (16:44)
[2023-12-03] MEDS: Zestril 20 MG PO SCH (16:44)
[2023-12-03] MEDS: ENOXAPARIN SODIUM SQ SCH (16:47)
[2023-12-03] MEDS: NICODERM CQ 14 MG TOP SCH (16:51)
[2023-12-04 07:15] VITALS: BP 145/82; PULSE 76; RESP 16; TEMP 98; O2SAT 93
[2023-12-04 08:46] LABS: Hematocrit 46.9 % (40.1-51.0); Hemoglobin 15.8 g/dL (13.7-17.5); Mean Cell Volume 90.2 fL (79.0-92.2); Mean Corpuscular Hemoglobin 30.4 pg (25.7-32.2); Mean Corpuscular Hgb Concent. 33.7 g/dL (32.3-36.5); Mean Platelet Volume 8.7 fL (9.4-12.4); Platelet Count 238 x10^3/uL (163-337); Red Cell Distribution Width 12.8 % (11.6-14.4); White Blood Count 11.9 x10^3/uL (4.23-9.07)
--- NOTE | 2023-12-04 09:04 | PCM.DS ---
Discharge Summary Date of Admission: 12/03/23 13:08 Date of Discharge: 12/04/23 Admitting Physician: KATJA DORADO MD Consults: Consults on Case 12/03/23 13:13 Consult Cardiology ROUTINE Primary Care Provider: PAMELA ROMO Allergies Allergies No Known Drug Allergies Allergy (Verified 12/03/23 09:30) Hospital Summary - Hospital Course Hospital Course: 12/03/23 is a 53 year old male with PMHX of stroke, hyperlipidemia, HTN, MO, type II DM, daily smoker- stopped 2 days ago, and occasional marijuana use. He presented to our ED today for evaluation of chest pain. Patient had a heart attack approximately 2 months he reports. He has had 2 cardiac stents placed. Patient is from [place] and recently moved here to [place]. 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 Patient has been experiencing some intermittent chest pain since his arrival to [place]. Patient's primary care doctor ordered a stress test. Patient was undergoing the stress test when he developed chest pain. Per report patient became unresponsive briefly. Patient was brought to our ED for further evaluation. Patient has some substernal chest discomfort that is sharp and w/o radiation. Trop x2 negative, will continue to trend. No diaphoresis, nausea or vomiting. + Shortness of breath with activity. No active shortness of breath at rest. Patient at this point is conversing, well-appearing, and in no acute dist ress. He voices no other complaints or concerns at this time. He is tearful. 12/04/2023 Pt resting in bed. He no longer is having CP and wants to leave today. Trop x3 negative. OK with cardiology to d/c and f/u OP with cardiology. Will also need to f/u with PCP. He denies CP, SOB, abd. pain, N/V/D. Pt left the hospital before speaking with cardiology. He refused to signed AMA papers and walked out. - Vitals & Intake/Output Vital Signs: Vital Signs Temperature 98.0 F 12/04/23 07:14 Pulse Rate 76 12/04/23 07:14 Respiratory Rate 16 12/04/23 07:14 Blood Pressure 145/82 12/04/23 07:14 O2 Sat by Pulse Oximetry 93 L 12/04/23 07:14 Intake & Output: Intake & Output 12/01/23 12/02/23 12/03/23 12/04/23 11:59 11:59 11:59 11:59 Intake Total 720 Balance 720 Weight 68.8 kg 68.9 kg - Lab Result Diagrams: 12/04/23 08:40 12/04/23 08:40 Lab Results-Last 24 Hrs: Lab Results-Last 24 Hours 12/03/23 12/03/23 12/03/23 Range/Units 09:32 09:35 09:35 WBC 9.6 H (4.23-9.07) x10^3/uL RBC 5.01 (4.63-6.08) x10^6/uL Hgb 15.4 (13.7-17.5) g/dL Hct 44.5 (40.1-51.0) % MCV 88.8 (79.0-92.2) fL MCH 30.7 (25.7-32.2) pg MCHC 34.6 (32.3-36.5) g/dL RDW 12.6 (11.6-14.4) % Plt Count 223 (163-337) x10^3/uL MPV 8.7 L (9.4-12.4) fL Gran % 72.3 H (34.0-67.9) % Immature Gran % (Auto) 0.2 (0.001-0.429) % Nucleat RBC Rel Count 0.0 (0.00-0.2) % Eos # (Auto) 0.17 (0.04-0.54) x10^3/uL Immature Gran # (Auto) 0.02 (0.001-0.031) x10^3u/L Absolute Lymphs (auto) 1.93 (1.32-3.57) x10^3/uL Absolute Monos (auto) 0.47 (0.30-0.82) x10^3/uL Absolute Nucleated RBC 0.00 (0.00-0.012) x10^3u/L Lymphocytes % 20.1 L (21.8-53.1) % Monocytes % 4.9 L (5.3-12.2) % Eosinophils % 1.8 (0.8-7.0) % Basophils % 0.7 (0.2-1.2) % Absolute Granulocytes 6.92 H (1.78-5.38) x10^3/uL Basophils # 0.07 (0.01-0.08) x10^3/uL Sodium 137 (135-145) mmol/L Potassium 3.9 (3.5-5.1) mmol/L Chloride 104 (98-107) mmol/L Carbon Dioxide 23 (22-30) mmol/L Anion Gap 13.5 (5-15) MEQ/L BUN 18 (9-20) mg/dL Creatinine 0.75 (0.66-1.25) mg/dL Estimated GFR 108.6 ML/MIN Glucose 145 H (74-106) mg/dL POC Glucometer 128 H (74 to 106) mg/dL Calcium 9.3 (8.4-10.2) mg/dL Total Bilirubin 0.60 (0.2-1.3) mg/dL AST 36 (17-59) U/L ALT 54 H (0-50) U/L Alkaline Phosphatase 65 (38-126) U/L Troponin I (0.000-0.033) ng/mL NT-Pro-B Natriuret Pep 197 (<300) pg/mL Serum Total Protein 7.1 (6.3-8.2) g/dL Albumin 4.3 (3.5-5.0) g/dL Urine Color (Yellow) Urine Appearance (Clear) Urine pH (4.6-8.0) Ur Specific [place] (1.005-1.030) Urine Protein (Negative) Urine Glucose (UA) (Negative) mg/dL Urine Ketones (Negative) Urine Blood (Negative) Urine Nitrite (Negative) Urine Bilirubin (Negative) Urine Urobilinogen (0.2) mg/dL Ur Leukocyte Esterase (Negative) U Hyaline Cast (Auto) (0-2) /LPF Urine Microscopic RBC (0-5) /HPF Urine Microscopic WBC (0-5) /HPF Ur Epithelial Cells (None Seen) /HPF Urine Bacteria (None Seen) /HPF Urine Culture Reflexed (NO) Urine Opiates Level (NEGATIVE) Ur Methadone (NEGATIVE) Urine Barbiturates (NEGATIVE) Ur Phencyclidine (PCP) (NEGATIVE) Urine Amphetamine (NEGATIVE) U Benzodiazepine Level (NEGATIVE) Urine Cocaine (NEGATIVE) Urine Marijuana (THC) (NEGATIVE) Ethyl Alcohol < 10 (0-10) mg/dL 12/03/23 12/03/23 12/03/23 Range/Units 09:35 12:05 12:05 WBC (4.23-9.07) x10^3/uL RBC (4.63-6.08) x10^6/uL Hgb (13.7-17.5) g/dL Hct (40.1-51.0) % MCV (79.0-92.2) fL MCH (25.7-32.2) pg MCHC (32.3-36.5) g/dL RDW (11.6-14.4) % Plt Count (163-337) x10^3/uL MPV (9.4-12.4) fL Gran % (34.0-67.9) % Immature Gran % (Auto) (0.001-0.429) % Nucleat RBC Rel Count (0.00-0.2) % Eos # (Auto) (0.04-0.54) x10^3/uL Immature Gran # (Auto) (0.001-0.031) x10^3u/L Absolute Lymphs (auto) (1.32-3.57) x10^3/uL Absolute Monos (auto) (0.30-0.82) x10^3/uL Absolute Nucleated RBC (0.00-0.012) x10^3u/L Lymphocytes % (21.8-53.1) % Monocytes % (5.3-12.2) % Eosinophils % (0.8-7.0) % Basophils % (0.2-1.2) % Absolute Granulocytes (1.78-5.38) x10^3/uL Basophils # (0.01-0.08) x10^3/uL Sodium (135-145) mmol/L Potassium (3.5-5.1) mmol/L Chloride (98-107) mmol/L Carbon Dioxide (22-30) mmol/L Anion Gap (5-15) MEQ/L BUN (9-20) mg/dL Creatinine (0.66-1.25) mg/dL Estimated GFR ML/MIN Glucose (74-106) mg/dL POC Glucometer (74 to 106) mg/dL Calcium (8.4-10.2) mg/dL Total Bilirubin (0.2-1.3) mg/dL AST (17-59) U/L ALT (0-50) U/L Alkaline Phosphatase (38-126) U/L Troponin I < 0.012 (0.000-0.033) ng/mL NT-Pro-B Natriuret Pep (<300) pg/mL Serum Total Protein (6.3-8.2) g/dL Albumin (3.5-5.0) g/dL Urine Color Yellow (Yellow) Urine Appearance Clear (Clear) Urine pH 5.5 (4.6-8.0) Ur Specific [place] 1.025 (1.005-1.030) Urine Protein Negative (Negative) Urine Glucose (UA) >=1000 A (Negative) mg/dL Urine Ketones Negative (Negative) Urine Blood Negative (Negative) Urine Nitrite Negative (Negative) Urine Bilirubin Negative (Negative) Urine Urobilinogen 0.2 (0.2) mg/dL Ur Leukocyte Esterase Negative (Negative) U Hyaline Cast (Auto) NONE SEEN (0-2) /LPF Urine Microscopic RBC 0-2 (0-5) /HPF Urine Microscopic WBC 0-2 (0-5) /HPF Ur Epithelial Cells None Seen (None Seen) /HPF Urine Bacteria None Seen (None Seen) /HPF Urine Culture Reflexed NO (NO) Urine Opiates Level NEGATIVE (NEGATIVE) Ur Methadone NEGATIVE (NEGATIVE) Urine Barbiturates NEGATIVE (NEGATIVE) Ur Phencyclidine (PCP) NEGATIVE (NEGATIVE) Urine Amphetamine NEGATIVE (NEGATIVE) U Benzodiazepine Level NEGATIVE (NEGATIVE) Urine Cocaine NEGATIVE (NEGATIVE) Urine Marijuana (THC) POSITIVE A (NEGATIVE) Ethyl Alcohol (0-10) mg/dL 12/03/23 12/03/23 12/03/23 Range/Units 12:10 13:19 16:25 WBC (4.23-9.07) x10^3/uL RBC (4.63-6.08) x10^6/uL Hgb (13.7-17.5) g/dL Hct (40.1-51.0) % MCV (79.0-92.2) fL MCH (25.7-32.2) pg MCHC (32.3-36.5) g/dL RDW (11.6-14.4) % Plt Count (163-337) x10^3/uL MPV (9.4-12.4) fL Gran % (34.0-67.9) % Immature Gran % (Auto) (0.001-0.429) % Nucleat RBC Rel Count (0.00-0.2) % Eos # (Auto) (0.04-0.54) x10^3/uL Immature Gran # (Auto) (0.001-0.031) x10^3u/L Absolute Lymphs (auto) (1.32-3.57) x10^3/uL Absolute Monos (auto) (0.30-0.82) x10^3/uL Absolute Nucleated RBC (0.00-0.012) x10^3u/L Lymphocytes % (21.8-53.1) % Monocytes % (5.3-12.2) % Eosinophils % (0.8-7.0) % Basophils % (0.2-1.2) % Absolute Granulocytes (1.78-5.38) x10^3/uL Basophils # (0.01-0.08) x10^3/uL Sodium (135-145) mmol/L Potassium (3.5-5.1) mmol/L Chloride (98-107) mmol/L Carbon Dioxide (22-30) mmol/L Anion Gap (5-15) MEQ/L BUN (9-20) mg/dL Creatinine (0.66-1.25) mg/dL Estimated GFR ML/MIN Glucose (74-106) mg/dL POC Glucometer 109 H 173 H (74 to 106) mg/dL Calcium (8.4-10.2) mg/dL Total Bilirubin (0.2-1.3) mg/dL AST (17-59) U/L ALT (0-50) U/L Alkaline Phosphatase (38-126) U/L Troponin I < 0.012 (0.000-0.033) ng/mL NT-Pro-B Natriuret Pep (<300) pg/mL Serum Total Protein (6.3-8.2) g/dL Albumin (3.5-5.0) g/dL Urine Color (Yellow) Urine Appearance (Clear) Urine pH (4.6-8.0) Ur Specific [place] (1.005-1.030) Urine Protein (Negative) Urine Glucose (UA) (Negative) mg/dL Urine Ketones (Negative) Urine Blood (Negative) Urine Nitrite (Negative) Urine Bilirubin (Negative) Urine Urobilinogen (0.2) mg/dL Ur Leukocyte Esterase (Negative) U Hyaline Cast (Auto) (0-2) /LPF Urine Microscopic RBC (0-5) /HPF Urine Microscopic WBC (0-5) /HPF Ur Epithelial Cells (None Seen) /HPF Urine Bacteria (None Seen) /HPF Urine Culture Reflexed (NO) Urine Opiates Level (NEGATIVE) Ur Methadone (NEGATIVE) Urine Barbiturates (NEGATIVE) Ur Phencyclidine (PCP) (NEGATIVE) Urine Amphetamine (NEGATIVE) U Benzodiazepine Level (NEGATIVE) Urine Cocaine (NEGATIVE) Urine Marijuana (THC) (NEGATIVE) Ethyl Alcohol (0-10) mg/dL 12/03/23 12/03/23 12/04/23 Range/Units 18:10 21:56 07:02 WBC (4.23-9.07) x10^3/uL RBC (4.63-6.08) x10^6/uL Hgb (13.7-17.5) g/dL Hct (40.1-51.0) % MCV (79.0-92.2) fL MCH (25.7-32.2) pg MCHC (32.3-36.5) g/dL RDW (11.6-14.4) % Plt Count (163-337) x10^3/uL MPV (9.4-12.4) fL Gran % (34.0-67.9) % Immature Gran % (Auto) (0.001-0.429) % Nucleat RBC Rel Count (0.00-0.2) % Eos # (Auto) (0.04-0.54) x10^3/uL Immature Gran # (Auto) (0.001-0.031) x10^3u/L Absolute Lymphs (auto) (1.32-3.57) x10^3/uL Absolute Monos (auto) (0.30-0.82) x10^3/uL Absolute Nucleated RBC (0.00-0.012) x10^3u/L Lymphocytes % (21.8-53.1) % Monocytes % (5.3-12.2) % Eosinophils % (0.8-7.0) % Basophils % (0.2-1.2) % Absolute Granulocytes (1.78-5.38) x10^3/uL Basophils # (0.01-0.08) x10^3/uL Sodium (135-145) mmol/L Potassium (3.5-5.1) mmol/L Chloride (98-107) mmol/L Carbon Dioxide (22-30) mmol/L Anion Gap (5-15) MEQ/L BUN (9-20) mg/dL Creatinine (0.66-1.25) mg/dL Estimated GFR ML/MIN Glucose (74-106) mg/dL POC Glucometer 84 134 H (74 to 106) mg/dL Calcium (8.4-10.2) mg/dL Total Bilirubin (0.2-1.3) mg/dL AST (17-59) U/L ALT (0-50) U/L Alkaline Phosphatase (38-126) U/L Troponin I < 0.012 (0.000-0.033) ng/mL NT-Pro-B Natriuret Pep (<300) pg/mL Serum Total Protein (6.3-8.2) g/dL Albumin (3.5-5.0) g/dL Urine Color (Yellow) Urine Appearance (Clear) Urine pH (4.6-8.0) Ur Specific [place] (1.005-1.030) Urine Protein (Negative) Urine Glucose (UA) (Negative) mg/dL Urine Ketones (Negative) Urine Blood (Negative) Urine Nitrite (Negative) Urine Bilirubin (Negative) Urine Urobilinogen (0.2) mg/dL Ur Leukocyte Esterase (Negative) U Hyaline Cast (Auto) (0-2) /LPF Urine Microscopic RBC (0-5) /HPF Urine Microscopic WBC (0-5) /HPF Ur Epithelial Cells (None Seen) /HPF Urine Bacteria (None Seen) /HPF Urine Culture Reflexed (NO) Urine Opiates Level (NEGATIVE) Ur Methadone (NEGATIVE) Urine Barbiturates (NEGATIVE) Ur Phencyclidine (PCP) (NEGATIVE) Urine Amphetamine (NEGATIVE) U Benzodiazepine Level (NEGATIVE) Urine Cocaine (NEGATIVE) Urine Marijuana (THC) (NEGATIVE) Ethyl Alcohol (0-10) mg/dL Micro Results-Entire Visit: Accuchecks Date 12/04/23 - Radiology Exams Ordered Rad Exams-Entire Visit: Radiology Procedures Category Date Time Status CHEST 1 VIEW (PORTABLE) Stat Exams 12/03/23 09:41 Completed ECHO W/2D AND DOPPLER [US] Routine Exams 12/03/23 13:56 Taken - Procedures and Test Procedures and Tests throughout Hospitalization: Therapy Orders & Screens 12/03/23 09:42 Cardiolite Stress Test-RT ONCE Comment: Reason For Exam: Discharge Exam General Appearance: no apparent distress, alert Neurologic Exam: alert, oriented x 3, cooperative, normal mood/affect, nml cerebellar function, sensation nml, No motor deficits Eye Exam: PERRL, EOMI, eyes nml inspection Ears, Nose, Throat Exam: normal ENT inspection, pharynx normal, moist mucous membranes Neck Exam: normal inspection, non-tender, supple, full range of motion Respiratory Exam: normal breath sounds, lungs clear, No respiratory distress Cardiovascular Exam: regular rate/rhythm, normal heart sounds Gastrointestinal/Abdomen Exam: soft, No tenderness, No mass Male Genitalia Exam: deferred Rectal Exam: deferred Back Exam: normal inspection, normal range of motion, No CVA tenderness, No vertebral tenderness Extremity Exam: normal inspection, normal range of motion Skin Exam: normal color, warm, dry Final Diagnosis/Problem List - Final Discharge Diagnosis/Problem (1) Chest pain Status: Acute Code(s): R07.9 - CHEST PAIN, UNSPECIFIED (2) Smoker Status: Chronic Code(s): F17.200 - NICOTINE DEPENDENCE, UNSPECIFIED, UNCOMPLICATED (3) Tetrahydrocannabinol (THC) dependence Status: Chronic Code(s): F12.20 - CANNABIS DEPENDENCE, UNCOMPLICATED (4) HTN (hypertension) Status: Acute Code(s): I10 - ESSENTIAL (PRIMARY) HYPERTENSION (5) Hyperlipidemia Status: Chronic Assessment & Plan: (1) Chest pain Current Visit: Yes Status: Acute Assessment & Plan: - while doing stress test today - improved since admission - cardiology consult. - Echo - Trop x2 negative- trend - EKG reviewed - labs reviewed - Tele - will need cardiology f/u OP as he just moved here and has not established with one yet. Code(s): R07.9 - CHEST PAIN, UNSPECIFIED (2) Smoker Current Visit: Yes Status: Chronic Assessment & Plan: - Pt reports he stopped 2 days ago - pt refused nicotine patch Code(s): F17.200 - NICOTINE DEPENDENCE, UNSPECIFIED, UNCOMPLICATED (3) Tetrahydrocannabinol (THC) dependence Current Visit: Yes Status: Chronic Assessment & Plan: - advised cessation - pt states he only occasionally smokes Code(s): F12.20 - CANNABIS DEPENDENCE, UNCOMPLICATED (4) HTN (hypertension) Current Visit: Yes Status: Acute Assessment & Plan: - Pt has not taken BP meds today for stress test as requested - Bp elevated - restart meds now. - trend BP 12/03 - P stable with home meds Code(s): I10 - ESSENTIAL (PRIMARY) HYPERTENSION (5) Hyperlipidemia Current Visit: Yes Status: Chronic Assessment & Plan: - Continue Zocor - Lipid panel from October reviewed Code(s): E78.5 - HYPERLIPIDEMIA, UNSPECIFIED - Discharge Discharge Date: 12/04/23 Disposition: Against Medical Advice Condition: Stable Prescriptions: Continue Prasugrel HCL 10 MG [Prasugrel] 10 mg PO DAILY Lisinopril 20 mg [Zestril 20 MG] 20 mg PO DAILY Atorvastatin Calcium 40 mg PO DAILY Metoprolol Tartrate 25 mg [Lopressor 25MG Tab] 25 mg PO BID Aspirin EC 81 mg [Ecotrin 81 mg] 81 mg PO DAILY Empagliflozin [Jardiance] 25 mg PO DAILY Follow up with: HAL MIMS [CONSULTING PHYSICIAN] - 12/17/23 1:45 pm ([place] Office) PAMELA ROMO MD [Primary Care Provider] - 12/11/23 1:45 pm
[2023-12-04 09:05] LABS: ALBUMIN 4.5 g/dL (3.5-5.0); ANION GAP 13.7 MEQ/L (5-15); BILIRUBIN,TOTAL 0.8 mg/dL (0.2-1.3); Calcium 9.5 mg/dL (8.4-10.2); Creatinine 1 0.78 mg/dL (0.66-1.25); EST GLOMERULAR FILTRATION RATE 107.3 ML/MIN; Potassium 4.3 mmol/L (3.5-5.1); Total Protein 7.4 g/dL (6.3-8.2)
[2023-12-04] MEDS ORDERED: ECOTRIN 81 MG PO SCH (10:00)
[2023-12-04] MEDS ORDERED: LIPITOR 40MG PO SCH (10:00)
== END 2023-12-04 10:05 | disposition left against medical advice (07) ==
LOC: ED 09:22 → EDSTATUS 09:22 → MED SURG 13:08
PROVIDERS: ADMIT Internal Medicine; ATTEND Internal Medicine
DX: R07.9 Chest pain, unspecified (principal); E11.9 Type 2 diabetes mellitus without complications; I10 Essential (primary) hypertension; I25.2 Old myocardial infarction; E78.5 Hyperlipidemia, unspecified; F17.200 Nicotine dependence, unspecified, uncomplicated; F12.20 Cannabis dependence, uncomplicated; Z79.899 Other long term (current) drug therapy; Z86.73 Personal history of transient ischemic attack (TIA), and cerebral infarction without residual deficits
CPT/HCPCS: 36000; 36415; 71045; 80053; 80307; 81001; 82077; 82947; 83880; 84484; 85025; 85027; 93005; 93015; 93041; 93306; 94760; 94762; 99285; Q3014; 93268; J1650; A9270-GY; G0378

== ENCOUNTER 2023-12-17 15:43 | Emergency (ER) | payer BC, OTHER ==
[2023-12-17 16:20] VITALS: TEMP 97.9
[2023-12-17] MEDS ORDERED: Vibramycin 100 MG ONE (16:24)
[2023-12-17] MEDS: Vibramycin 100 MG PO ONE (16:25)
[2023-12-17 16:32] VITALS: BP 130/83; PULSE 53; RESP 16
[2023-12-17 16:34] VITALS: O2SAT 99
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
== END 2023-12-17 16:41 | disposition home or self-care (01) ==
LOC: ED 15:43
DX: S30.861A Insect bite (nonvenomous) of abdominal wall, initial encounter (principal); W57.XXXA Bitten or stung by nonvenomous insect and other nonvenomous arthropods, initial encounter; E78.5 Hyperlipidemia, unspecified; I10 Essential (primary) hypertension; E11.9 Type 2 diabetes mellitus without complications; Z79.84 Long term (current) use of oral hypoglycemic drugs; Z79.899 Other long term (current) drug therapy
CPT/HCPCS: 99282; A9270-GY

== ENCOUNTER 2023-12-29 13:59 | Emergency (ER) | payer OTHER ==
[2023-12-29 14:19] VITALS: TEMP 97
[2023-12-29 14:47] LABS: Absolute Neutrophil Ct (ANC) 6.09 x10^3/uL (1.78-5.38); Basophil (Absolute #) 0.08 x10^3/uL (0.01-0.08); Eosinophil % 0.6 % (0.8-7.0); Eosinophil (Absolute #) 0.05 x10^3/uL (0.04-0.54); Hematocrit 43.5 % (40.1-51.0); Hemoglobin 14.9 g/dL (13.7-17.5); IMMATURE GRAN # 0.02 x10^3u/L (0.001-0.031); IMMATURE GRAN % 0.2 % (0.001-0.429); Lymphocyte (Absolute #) 1.78 x10^3/uL (1.32-3.57); Lymphocytes % 21.2 % (21.8-53.1); Mean Cell Volume 88.8 fL (79.0-92.2); Mean Corpuscular Hemoglobin 30.4 pg (25.7-32.2); Mean Corpuscular Hgb Concent. 34.3 g/dL (32.3-36.5); Mean Platelet Volume 8.6 fL (9.4-12.4); Monocyte (Absolute #) 0.39 x10^3/uL (0.30-0.82); Monocytes % 4.6 % (5.3-12.2); Neutrophil % 72.4 % (34.0-67.9); Platelet Count 210 x10^3/uL (163-337); Red Cell Distribution Width 12.2 % (11.6-14.4); White Blood Count 8.4 x10^3/uL (4.23-9.07)
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
[2023-12-29 15:04] LABS: ACETAMINOPHEN < 10 ug/ml (10-30); ALBUMIN 4.3 g/dL (3.5-5.0); ALKALINE PHOSPHATASE 56 U/L (38-126); ANION GAP 13.1 MEQ/L (5-15); BLOOD UREA NITROGEN 16 mg/dL (9-20); CHLORIDE 105 mmol/L (98-107); Calcium 9.5 mg/dL (8.4-10.2); Carbon Dioxide 25 mmol/L (22-30); Creatinine 1 0.79 mg/dL (0.66-1.25); EST GLOMERULAR FILTRATION RATE 106.9 ML/MIN; ETHYL ALCOHOL < 10 mg/dL (0-10); Glucose 125 mg/dL (74-106); Potassium 3.9 mmol/L (3.5-5.1); SALICYLATE < 1.0 mg/dL (2-20); SGOT/AST 37 U/L (17-59); SGPT/ALT 60 U/L (0-50); SODIUM 139 mmol/L (135-145)
[2023-12-29 16:02] LABS: Amphetamine,Urine NEGATIVE (NEGATIVE); Barbiturate,Urine NEGATIVE (NEGATIVE); Cocaine,Urine NEGATIVE (NEGATIVE); Methadone,Urine NEGATIVE (NEGATIVE); Opiate,Urine NEGATIVE (NEGATIVE); PCP,Urine NEGATIVE (NEGATIVE); THC,Urine POSITIVE (NEGATIVE)
[2023-12-29 22:07] VITALS: BP 140/85; PULSE 67; RESP 20; O2SAT 96
[2023-12-31 20:13] LABS: Benzodiazepines Negative ng/mL (Cutoff=300)
== END 2023-12-29 22:43 | disposition left against medical advice (07) ==
LOC: ED 13:59
DX: R45.851 Suicidal ideations (principal); E78.5 Hyperlipidemia, unspecified; I10 Essential (primary) hypertension; E11.9 Type 2 diabetes mellitus without complications; Z79.84 Long term (current) use of oral hypoglycemic drugs; Z79.899 Other long term (current) drug therapy
CPT/HCPCS: 36415; 80053; 80143; 80179; 80307; 82077; 82947; 85025; 99284; Q3014; 90791

== ENCOUNTER 2024-03-07 12:25 | Emergency (ER) | payer OTHER ==
[2024-03-07 12:39] VITALS: TEMP 97.5; O2SAT 98
[2024-03-07] MEDS ORDERED: XYLOCAINE 1% HCL 20 ML MDV ONE (12:43)
[2024-03-07] MEDS ORDERED: Kenalog-40 ONE (12:43)
[2024-03-07] MEDS: XYLOCAINE 1% HCL 20 ML MDV IJ ONE (12:45)
[2024-03-07] MEDS: Kenalog-40 IM ONE (12:46)
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
[2024-03-07 13:11] VITALS: BP 138/88; PULSE 64; RESP 18
--- NOTE | 2024-03-07 21:16 | XRAY ---
Indication: Pain following fall 2 months ago. Comparison: None 3 view right shoulder obtained. No bony, articular, or soft tissue abnormalities.
== END 2024-03-07 13:12 | disposition home or self-care (01) ==
LOC: ED 12:25
DX: M75.21 Bicipital tendinitis, right shoulder (principal); E78.5 Hyperlipidemia, unspecified; I10 Essential (primary) hypertension; E11.9 Type 2 diabetes mellitus without complications; Z79.84 Long term (current) use of oral hypoglycemic drugs; Z79.899 Other long term (current) drug therapy; Z72.0 Tobacco use
CPT/HCPCS: 20610; 73030; 96372; 99283; J3301